=== PATIENT | female | born 1945 | race Caucasian/White ===

== ENCOUNTER 2022-01-03 09:15 | Emergency (ER) | payer OTHER, BC ==
[2022-01-03 09:31] VITALS: BP 150/76; PULSE 88; TEMP 98.1; BMI 23.3
[2022-01-04 23:11] LABS: SARS-CoV-2 NAA Detected (Not Detected)
== END 2022-01-03 09:50 | disposition home or self-care (01) ==
LOC: JER 09:15
DX: U07.1 COVID-19 (principal)
CPT/HCPCS: 99283-25; C9803-CS; U0003; U0005

== ENCOUNTER 2022-01-05 13:50 | Emergency (ER) | payer OTHER, BC ==
[2022-01-05 13:54] VITALS: BP 122/68; PULSE 77; TEMP 97.7; BMI 23.3
[2022-01-05] MEDS ORDERED: BEBTELOVIMAB (EUA) 175 MG/2 ML VIAL IVPUSH ONE (14:40)
[2022-01-05 17:47] LABS: HEMATOCRIT 41.7 % (32.4-45.2); HEMOGLOBIN 13.8 GM/dL (10.7-15.3); MCH 29.8 pg (25.7-33.7); MEAN CELL VOLUME 90.1 fl (80-96); MEAN PLT VOLUME 8.3 fl (7.5-11.1); PLATELET COUNT 316 10^3/uL (134-434); RBC 4.62 M/mm3 (3.60-5.2); RDW 13.2 % (11.6-15.6); WHITE BLOOD COUNT 5.5 K/mm3 (4.0-10.0)
[2022-01-05 18:05] LABS: CHLORIDE 116 mmol/L (98-107); SODIUM 147 mmol/L (136-145)
[2022-01-05 18:07] LABS: BLOOD UREA NITROGEN 8.7 mg/dL (7-18); CO2 23 mmol/L (21-32); GLUCOSE,RANDOM 72 mg/dL (74-106)
[2022-01-05 18:10] LABS: CREATININE 0.4 mg/dL (0.55-1.3)
[2022-01-05 18:11] LABS: ANION GAP 7 MMOL/L (8-16); CALCIUM 6.2 mg/dL (8.5-10.1)
== END 2022-01-05 17:38 | disposition home or self-care (01) ==
LOC: JCOVINFU 13:50
PROC: 3E033GC Introduction of Other Therapeutic Substance into Peripheral Vein, Percutaneous Approach (ICD-10-PCS; principal; 2022-01-05)
DX: U07.1 COVID-19 (principal); E87.6 Hypokalemia; E83.51 Hypocalcemia
CPT/HCPCS: 36415; 80048; 85027; 99284-25; M0222; Q0222